=== PATIENT | female | born 1960 | race Asian ===

== ENCOUNTER 2019-01-08 23:08 | Emergency (ER) | payer OTHER ==
[~2019-01-08] VITALS: Ht 152.4 cm; Wt 72.7 kg
[~2019-01-08 23:08] MED LIST: ALBU8.5H3 IH; ATEN50TA PO; ATOR10TA84 PO; BENA20TA10 PO; BENZ0.5T32 PO; GLIP5TAB11 PO; SITA50 PO; TRAZ-184 PO; ZIPR20CA2 PO
[2019-01-09 00:09] LABS: GLUCOSE,POINT OF CARE 183 MG/DL (70-110)
[2019-01-09] MEDS ORDERED: PredniSONE 20 MG TABLET PO ONE (02:15)
[2019-01-09 02:30] VITALS: BP 144/76
== END 2019-01-09 02:30 | disposition home or self-care (01) ==
LOC: EMS 23:09
DX: L30.9 Dermatitis, unspecified (principal); J45.909 Unspecified asthma, uncomplicated; E11.9 Type 2 diabetes mellitus without complications; I10 Essential (primary) hypertension; E78.00 Pure hypercholesterolemia, unspecified; F32.9 Major depressive disorder, single episode, unspecified; Z88.6 Allergy status to analgesic agent
CPT/HCPCS: 82962; 99283; J7512